=== PATIENT | female | born 1995 | race Caucasian/White ===

== ENCOUNTER 2020-12-03 21:59 | Emergency (ER) | payer MEDICAID ==
[~2020-12-03] VITALS: Ht 165.1 cm; Wt 63.5 kg
[2020-12-03 23:06] VITALS: BP 140/80
--- NOTE | 2020-12-03 23:06 | NUR ---
Patient discharged to home in stable condition. Written and verbal after care instructions given. Patient verbalizes understanding of instruction.
== END 2020-12-03 23:06 | disposition home or self-care (01) ==
LOC: ER 22:10
DX: R06.02 Shortness of breath (principal); R06.2 Wheezing
CPT/HCPCS: 71045-TC